=== PATIENT | female | born 1995 | race African-American/Black ===

== ENCOUNTER 2016-05-13 16:14 | Emergency (ER) ==
[2016-05-13 16:33] VITALS: BP 135/76
--- NOTE | 2016-05-13 16:49 | PROVIDER DOCUMENTATION ---
HPI-General Adult <Candi MartinezDanni - Last Filed: 05/13/16 16:48> - General Source: patient - History of Present Illness -Gen Adult Nature of Presenting Problems: patient is a 20 y/o F that presents to the ER with two complaints: 1) constipation x 1 week, she reports not wanting to use bathroom while at work. denies fever/chill, n/v/d or abdominal pain 2) bilateral earache x 2 days, denies dizziness, headache, or cough. Location of Pain/Injury: reports: other (ear) Pain Radiation: reports: no radiation Quality of Pain: reports: none, dull Severity: reports: mild Onset/Duration: reports: gradual, 2 days ago Timing: reports: still present, constant Context/Activities at Onset: reports: none Modifying Factors: improves with: nothing Associated Symptoms: reports: constipation (one week), EENT symptoms (bilateral ear pain). denies: chest pain, dizziness, fever/chills, genitourinary problems , nausea, vomiting Similar Symptoms Previously?: No Recently seen or treated by another doctor?: No <Jacobo Shrestha - Last Filed: 05/13/16 16:54> - General Chief Complaint: General Adult Stated Complaint: EARACHE/CONSTIPATION Time Seen by Provider: 05/13/16 16:39 Allergies/Adverse Reactions: Patient Allergies Allergy/AdvReac Type Severity Reaction Status Date / Time latex Allergy ITCHING Verified 05/13/16 16:34 Review of Systems - Adult - REVIEW OF SYSTEMS - ADULT Constitutional: denies: chills, fever Eyes: reports: no symptoms reported Ears, Nose, Mouth & Throat: reports: ear pain. denies: ear discharge, sinus problem, nose pain, throat pain Cardiovascular: denies: chest pain, palpitations, syncope Respiratory: denies: cough, dyspnea on exertion, shortness of breath, wheezing Gastrointestinal: reports: constipation. denies: abdominal pain, diarrhea, nausea, vomiting Genitourinary: denies: dysuria, frequency, hesitency Musculoskeletal: reports: no symptoms reported Integumentary: reports: no symptoms reported Neurological: reports: no symptoms reported Psychiatric: reports: no symptoms reported Endocrine: reports: no symptoms reported Hematologic/Lymphatic: reports: no symptoms reported Allergic/Immunologic: reports: no symptoms reported All Other Systems: Reviewed and Negative <Jacobo Shrestha - Last Filed: 05/13/16 16:54> Past History - Adult - PAST MEDICAL HISTORY-ADULT Major Childhood Illnesses: reports: denies history - IMMUNIZATION STATUS Childhood Immunizations: See Nurse Assessment Flu Vaccine: See Nurse Assessment <Candi Martinez - Last Filed: 05/13/16 16:48> - PAST MEDICAL HISTORY-ADULT Review of Records: reports: Old Records Reviewed, Nursing Assessment Review, Medications Reviewed - PRIOR SURGERIES/PROCEDURES Surgical/Procedure History: reports: none - IMMUNIZATION STATUS Childhood Immunizations: See Nurse Assessment Flu Vaccine: See Nurse Assessment - FAMILY HISTORY Family History: reviewed, not pertinent - SOCIAL HISTORY Smoking: non-smoker Alcohol Use Frequency: occasionally Living Situation: family <Jacobo Shrestha - Last Filed: 05/13/16 16:54> Physical Exam-General - PHYSICAL EXAM-ADULT Initial Vital Signs Reviewed: Yes - CONSTITUTIONAL General Appearance: alert, no apparent distress - EYES Eyes: PERRL/EOMI, pink conjunctivae - HEAD, EARS, NOSE, MOUTH & THROAT HENMT: normocephalic/atraumatic, moist mucous membranes, pharynx normal, TM abnormal (left erythemic). negative: pharyngeal erythema, tonsillar exudate - NECK Neck: non-tender, normal inspection. negative: full range of motion, lymphadenopathy - RESPIRATORY Respiratory: lungs clear, normal breath sounds, no respiratory distress, no accessory muscle use - CARDIOVASCULAR Cardiovascular: regular rate, rhythm, no edema, no murmur - GASTROINTESTINAL (ABDOMEN) Abdominal Exam: normal bowel sounds, non tender, soft, no organomegaly, no pulsatile mass. negative: distended, guarding, rigid - MUSCULOSKELETAL Back Exam: no CVA tenderness, no vertebral tenderness Extremity: normal range of motion, normal inspection, no pedal edema, no calf tenderness - SKIN Integumentary: normal color, normal turgor, warm/dry - NEUROLOGIC Neurologic: grossly normal, no motor/sensory deficits - PSYCHIATRIC Psych/Mental Status: normal mood/affect, normal thought content, normal thought process, oriented x 3 <Jacobo Shrestha - Last Filed: 05/13/16 16:54> Progress - PLAN OF CARE/RESULTS Progress/Plan/Lab Results: Vital Signs Temp Pulse Resp BP Pulse Ox 05/13/16 16:28 98.1 F 71 20 135/76 100 latex Allergy (Verified 05/13/16 16:34) ITCHING Amoxicillin [Amoxil] 500 mg PO BID #20 capsule 05/13/16 Bisacodyl [Dulcolax] 10 mg ND QHS #20 supp 05/13/16 Polyethylene Glycol 3350 [Miralax] 510 gm PO DAILY #1 powder 05/13/16 <Jacobo Shrestha - Last Filed: 05/13/16 16:54> Departure - Departure Time of Disposition Order: 16:48 Certified Medical Emergency: Emergent <Candi Martinez - Last Filed: 05/13/16 16:48> <Jacobo Shrestha - Last Filed: 05/13/16 16:54> - Departure DIAGNOSIS: Acute otitis media, left Constipation Qualifiers: Constipation type: slow transit constipation Qualified Code(s): K59.01 - Slow transit constipation Disposition: HOME 01 Condition: Stable Additional Instructions: ED Follow Up Instructions: You have been treated by a care provider in the Emergency Department. These instructions are being provided to you so you can have an understanding of how to care for yourself upon discharge. Upon discharge from the Emergency Department, you are responsible for making arrangements for follow-up care by a physician of your choice. Take all prescribed medications as directed. Return to the Emergency Department immediately for any new or worsening symptoms. You may call the Physician Referral phone number at [phone] to obtain a list of Physicians who are taking new patients. Prescriptions: Amoxicillin [Amoxil] 500 mg PO BID #20 capsule Bisacodyl [Dulcolax] 10 mg ND QHS #20 supp Polyethylene Glycol 3350 [Miralax] 510 gm PO DAILY #1 powder Referrals: None,PCP [Primary Care Provider] - Attestation - Scribe Verification/Attestation Scribe:: Jacobo Shrestha Acting as Scribe for:: Candi Martinez Scribe documention review:: This chart was documented by a scribe and accurately reflects the service the provider performed and the decisions made by the provider. - Physician/ Mid-level Attestation Patient care was provided by Mid-level provider (BOW STAPLER/PA):: Yes Mid-level provider:: Candi Martinez Mid-level documentation review:: The Mid-level provider documentation, treatment plan and medical decision making was reviewed by the physician who agrees with all treatment and medical decision making by the MLP. <Jacobo Shrestha - Last Filed: 05/13/16 16:54> Physician Attestation
== END 2016-05-13 17:04 | disposition home or self-care (01) ==
LOC: P.ED 16:14
DX: H66.92 Otitis media, unspecified, left ear (principal); K59.01 Slow transit constipation; H92.03 Otalgia, bilateral
CPT/HCPCS: 99281

== ENCOUNTER 2016-07-03 03:00 | Emergency (ER) ==
[2016-07-03 03:10] VITALS: BP 138/84
[2016-07-03] MEDS ORDERED: ALBUTEROL NEB INH ONE (03:41)
--- NOTE | 2016-07-03 03:41 | PROVIDER DOCUMENTATION ---
HPI-Respiratory General - General Chief Complaint: Cough Stated Complaint: COUGHING Time Seen by Provider: 07/03/16 03:35 Source: patient Allergies/Adverse Reactions: Patient Allergies Allergy/AdvReac Type Severity Reaction Status Date / Time latex Allergy ITCHING Verified 05/30/16 08:24 Home Medications: Home Medication List Medication Instructions Recorded Confirmed Last Taken Type Albuterol [Albuterol Neb] 2.5 mg INH Q4H PRN PRN #30 neb 07/03/16 Unknown Rx Guaifenesin/Codeine [Robitussin-AC] 5 ml PO Q4H PRN PRN #8 udc 07/03/16 Unknown Rx - History of Present Illness-Resp Nature of Presenting Problem: coughing since Thursday hard to spit up phlegm works 2 jobs Quality of Pain: reports: aching Severity in ED: reports: mild Onset/Duration: reports: 5 days ago Timing: reports: still present Context: reports: recent URI Cough Quality/Degree: reports: productive cough Episode Frequency: occasional episodes Current Respiratory Medication Therapy: Initiated none Modifying Factors: improves with: nothing Associated Symptoms: reports: cough, flu-like symptoms, nasal congestion, nasal drainage, sore throat, wheezing Similar Symptoms Previously?: No Recently seen or treated by another doctor?: No Review of Systems - Adult - REVIEW OF SYSTEMS - ADULT Constitutional: reports: no symptoms reported Eyes: reports: no symptoms reported Ears, Nose, Mouth & Throat: reports: sinus problem, throat pain Cardiovascular: reports: no symptoms reported Respiratory: reports: cough Gastrointestinal: denies: abdominal pain, constipation, diarrhea, vomiting Genitourinary: reports: no symptoms reported Musculoskeletal: reports: no symptoms reported Integumentary: reports: no symptoms reported Neurological: reports: no symptoms reported Psychiatric: reports: no symptoms reported Endocrine: reports: no symptoms reported Hematologic/Lymphatic: reports: no symptoms reported Past History - Adult - PAST MEDICAL HISTORY-ADULT Review of Records: reports: Nursing Assessment Review, Medications Reviewed, Social history reviewed & non-contributory. Major Childhood Illnesses: reports: denies history Cardiovascular: reports: denies history Respiratory: reports: denies history Gastrointestinal: reports: denies history Obstetrical/Gynecological: reports: denies history Genitourinary: reports: denies history Musculoskeletal: reports: denies history Neurological: reports: denies history Psychiatric: reports: anxiety Endocrine/Immune: reports: denies history Other Conditions: reports: denies history - PRIOR SURGERIES/PROCEDURES Surgical/Procedure History: reports: none - IMMUNIZATION STATUS Childhood Immunizations: See Nurse Assessment Flu Vaccine: See Nurse Assessment - FAMILY HISTORY Family History: reviewed, not pertinent Physical Exam-General - PHYSICAL EXAM-ADULT Initial Vital Signs Reviewed: Yes - CONSTITUTIONAL General Appearance: mild distress - EYES Eyes: PERRL/EOMI, pink conjunctivae - HEAD, EARS, NOSE, MOUTH & THROAT HENMT: normocephalic/atraumatic, moist mucous membranes, normal ENT inspection, TMs normal, pharynx normal - NECK Neck: supple, other (acanthosis) - RESPIRATORY Respiratory: wheezing - CARDIOVASCULAR Cardiovascular: regular rate, rhythm - GASTROINTESTINAL (ABDOMEN) Abdominal Exam: soft - MUSCULOSKELETAL Back Exam: normal inspection Extremity: normal range of motion - SKIN Integumentary: normal color, normal turgor - NEUROLOGIC Neurologic: grossly normal - PSYCHIATRIC Psych/Mental Status: oriented x 3 Departure - Departure Time of Disposition Order: 04:09 DIAGNOSIS: Asthma Qualifiers: Asthma severity: unspecified severity Asthma complication type: uncomplicated Qualified Code(s): J45.909 - Unspecified asthma, uncomplicated URI (upper respiratory infection) Qualifiers: URI type: unspecified viral URI Qualified Code(s): J06.9 - Acute upper respiratory infection, unspecified; B97.89 - Other viral agents as the cause of diseases classified elsewhere Disposition: HOME 01 Certified Medical Emergency: Emergent Condition: Stable Additional Instructions: ED Follow Up Instructions: You have been treated by a care provider in the Emergency Department. These instructions are being provided to you so you can have an understanding of how to care for yourself upon discharge. Upon discharge from the Emergency Department, you are responsible for making arrangements for follow-up care by a physician of your choice. Take all prescribed medications as directed. Return to the Emergency Department immediately for any new or worsening symptoms. You may call the Physician Referral phone number at [phone] to obtain a list of Physicians who are taking new patients. Prescriptions: Albuterol [Albuterol Neb] 2.5 mg INH Q4H PRN PRN #30 neb PRN Reason: wheezes Guaifenesin/Codeine [Robitussin-AC] 5 ml PO Q4H PRN PRN #8 udc PRN Reason: Cough
[2016-07-03] MEDS ORDERED: BENADRYL PO ONE (04:12)
== END 2016-07-03 04:25 | disposition home or self-care (01) ==
LOC: P.ED 03:00
DX: J45.909 Unspecified asthma, uncomplicated (principal); J06.9 Acute upper respiratory infection, unspecified; R05 Cough; R09.81 Nasal congestion; R06.2 Wheezing; J02.9 Acute pharyngitis, unspecified
CPT/HCPCS: 94640; 99282